=== PATIENT | female | born 1955 | race Caucasian/White ===

== ENCOUNTER 2016-08-24 13:37 | Emergency (ER) | payer BC, OTHER ==
[2016-08-24 14:00] VITALS: BMI 35.3
--- NOTE | 2016-08-24 14:08 | PDOC ---
History of Present Illness - General History Source: Patient Exam Limitations: No Limitations - History of Present Illness Initial Comments: CHIEF COMPLAINT: 61 y/o afebrile female with PMH HTN, HLD, NIDDM, GERD c/o nausea, vomiting and lightheaded since yesterday. HISTORY OF PRESENT ILLNESS: The patient states initially her symptoms started with a headache yesterday around lunch time and shortly afterwards the other symptoms began. She states she is lightheaded mostly if she stands up. She states she cannot hold down even water. She denies LOC, head trauma, f/c, neck pain, changes in vision/hearing, cough, hemoptysis, CP, SOB, back pain, hematuria, dysuria, diarrhea, constipation, melena, blood stools. PCP is Dr. Brett Hedrick/Dwaine Vital signs on arrival are within normal limits. REVIEW OF SYSTEMS: GENERAL/CONSTITUTIONAL: No fever/chills. No weakness. No weight change. + lightheaded. HEAD, EYES, EARS, NOSE AND THROAT: No change in vision. No ear pain or discharge. No sore throat. CARDIOVASCULAR: No chest pain or shortness of breath. RESPIRATORY: No cough, wheezing, or hemoptysis. GASTROINTESTINAL: +abdominal pain, nausea, vomiting. GENITOURINARY: No dysuria, frequency, or change in urination. MUSCULOSKELETAL: No joint or muscle swelling or pain. No neck or back pain. SKIN: No rash or easy bruising. NEUROLOGIC: No headache, vertigo, loss of consciousness, or loss of sensation. PHYSICAL EXAM: GENERAL: The patient is awake, alert, and fully oriented, in no acute distress. HEAD: Normal with no signs of trauma. NECK: No midline c-spine TTP or step offs. ENT: Pupils equal, round and reactive to light, extraocular movements intact, sclera anicteric, conjunctiva clear. Mucous membranes mildly dry. Lips dry and cracked. LUNGS: Clear to auscultation bilaterally. Normal excursion. No respiratory distress or use of accessory muscles. CV: RRR, S1/S2, no MRG. Cap refill < 2 sec. ABDOMEN: Soft, non-distended, TTP of epigastric region and RUQ with +Arana's sign. Passive guarding. No lower abdominal TTP. No rebound or rigidity. EXTREMITIES: Normal range of motion, no edema. NEUROLOGICAL: Normal speech, normal gait. CN II-XII grossly intact. PSYCH: Normal mood, normal affect. SKIN: Warm, dry, normal turgor, no rashes or lesions noted. <Paulina Cuba - Last Filed: 08/24/16 18:52> <Laly Pastrana - Last Filed: 08/25/16 08:40> - General Chief Complaint: Nausea/Vomiting Stated Complaint: NAUSEA, VOMITING Time Seen by Provider: 08/24/16 13:55 Past History <Paulina Cuba - Last Filed: 08/24/16 18:52> <Laly Pastrana - Last Filed: 08/25/16 08:40> - Past Medical History Allergies/Adverse Reactions: Allergies Allergy/AdvReac Type Severity Reaction Status Date / Time No Known Allergies Allergy Verified 08/24/16 13:41 Home Medications: Ambulatory Orders Atenolol [Tenormin -] 50 mg PO BID 08/24/16 Atorvastatin Ca [Lipitor] 20 mg PO HS 08/24/16 Famotidine [Pepcid] 20 mg PO BID #10 tablet 08/24/16 Omeprazole 40 mg PO DAILY 08/24/16 Ondansetron [Zofran Odt -] 4 mg SL TID #6 od.tablet 08/24/16 Sitagliptin Phos/Metformin HCl [Janumet 50-1,000 mg Tablet] 50 - 1,000 mg PO DAILY 08/24/16 *Physical Exam - Vital Signs Last Vital Signs Temp Pulse Resp BP Pulse Ox 98.6 F 82 16 134/72 96 08/24/16 18:12 08/24/16 18:12 08/24/16 18:12 08/24/16 18:12 08/24/16 18:12 <Laly Pastrana - Last Filed: 08/25/16 08:40> Heart Score/ECG Review - ECG Intrepretation Comment:: Twelve-lead EKG was performed and reviewed by Dr. Pastrana. There is normal sinus rhythm with a normal rate. The axis is normal. The intervals are normal. There are no ST or T wave abnormalities. Impression: Normal twelve-lead EKG <Paulina Cuba - Last Filed: 08/24/16 18:52> ED Treatment Course - LABORATORY CBC & Chemistry Diagram: 08/24/16 14:20 08/24/16 14:20 <Rosa ElenaPaulina - Last Filed: 08/24/16 18:52> - LABORATORY CBC & Chemistry Diagram: 08/24/16 14:20 08/24/16 14:20 - ADDITIONAL ORDERS Additional order review: 08/24/16 14:20 RBC 5.02 MCV 83.5 MCHC 34.2 RDW 13.1 MPV 9.5 Neutrophils % 76.5 Lymphocytes % 18.6 Monocytes % 4.2 Eosinophils % 0.2 Basophils % 0.5 - Medications Given in the ED: ED Medications Discontinued Medications Generic Name Dose Route Start Last Admin Trade Name Freq PRN Reason Stop Dose Admin Acetaminophen 1,000 mg 08/24/16 15:37 08/24/16 15:46 Ofirmev Injection - IVPB 08/24/16 15:38 1,000 mg ONCE ONE Administration Famotidine/Sodium Chloride 50 mls @ 100 mls/hr 08/24/16 14:09 08/24/16 14:33 Pepcid 20 Mg Premixed Ivpb - IVPB 08/24/16 14:38 100 mls/hr ONCE ONE Administration Sodium Chloride 1,000 mls @ 1,000 mls/hr 08/24/16 14:09 08/24/16 14:32 Normal Saline - IV 08/24/16 15:08 1,000 mls/hr ASDIR STA Administration Ondansetron HCl 4 mg 08/24/16 14:09 08/24/16 14:33 Zofran Injection IVPUSH 08/24/16 14:10 4 mg ONCE ONE Administration <Laly Pastrana - Last Filed: 08/25/16 08:40> Medical Decision Making - Medical Decision Making A/P: 61 y/o afebrile female with n/v, headache and lightheaded for the past 24 hours. Plan is as follows: 1. Labs 2. EKG 3. CXR 4. Gallbladder ultrasound 5. IV fluids 6. IV zofran 7. IV pepcid Gallbladder Ultrasound IMPRESSION: No gallstones identified. CXR IMPRESSION: No acute pathology. Potassium at 3.2. All other labs unremarkable. UA normal. Pt still with headache. Ordered IV tylenol The patient states she now feels much better with no nausea. She states her headache is now down to a 5/10, from a 10/10. She was able to pass a PO challenge, drinking ice water and juice without any subsequent nausea or abdominal pain. Will discharge to home with rx for zofran and pepcid. Suggested she slowly rehydrate and eat bland diet until symptoms improve. The patient was instructed to return to the ER with any worsening or concerning symptoms. The patient verbalizes understanding of all instructions, has no further questions and is awaiting discharge. <Paulina Cuba - Last Filed: 08/24/16 18:52> *DC/Admit/Observation/Transfer <Paulina Cuba - Last Filed: 08/24/16 18:52> - Attestations Physician Attestion: I reviewed the case with the mid-level practitioner and agree with the mid- level practitioner's assessment, diagnosis and disposition. <Laly Pastrana - Last Filed: 08/25/16 08:40> Diagnosis at time of Disposition: Lightheaded Nausea and vomiting Qualifiers: Vomiting type: unspecified Vomiting Intractability: non-intractable Qualified Code(s): R11.2 - Nausea with vomiting, unspecified Headache Qualifiers: Headache type: unspecified Headache chronicity pattern: acute headache Intractability: not intractable Qualified Code(s): R51 - Headache - Discharge Dispostion Disposition: HOME Condition at time of disposition: Improved - Prescriptions Prescriptions: Famotidine [Pepcid] 20 mg PO BID #10 tablet Ondansetron [Zofran Odt -] 4 mg SL TID #6 od.tablet - Referrals Referrals: Brett Hedrick MD [Primary Care Provider] - (Call Friday) - Patient Instructions Printed Discharge Instructions: DI for Nausea -- Adult, DI for Vomiting -- Adult, DI for Headache, [place] Diet Additional Instructions: Discharge Instructions: -Prescriptions have been sent to your pharmacy for vomiting and abdominal pain. Take only if needed -Please continue to drink plenty of fluids at home -You can take Tylenol or Motrin for headaches at home -Take your normal daily medications as prescribed -Call your doctor on Friday to schedule follow up appointment -Return to the ER with any worsening or concerning symptoms
[2016-08-24] MEDS ORDERED: SODIUM CHLORIDE 1,000 ML IV STA (14:09)
[2016-08-24] MEDS ORDERED: ONDANSETRON 4 MG/2 ML VIAL IVPUSH ONE (14:09)
[2016-08-24] MEDS ORDERED: FAMOTIDINE 20 MG/50 ML IVPB 50 ML IVPB ONE ×2 (14:09→14:27)
[2016-08-24] MEDS ORDERED: ONDANSETRON 4 MG/2 ML VIAL ONE (14:27)
[2016-08-24 14:32] LABS: BASOPHIL 0.5 % (0-2.0); EOSINOPHIL 0.2 % (0-4.5); MCH 28.5 pg (25.7-33.7); MCHC 34.2 g/dl (32.0-36.0); MEAN CELL VOLUME 83.5 fl (80-96); MEAN PLT VOLUME 9.5 fl (7.5-11.1); NEUTROPHILS 76.5 % (42.8-82.8); PLATELET COUNT 226 K/MM3 (134-434); RDW 13.1 % (11.6-15.6); WHITE BLOOD COUNT 12.2 K/mm3 (4.0-10.0)
[2016-08-24 14:36] LABS: URINE APPEARANCE CLEAR; URINE BILIRUBIN NEGATIVE (NEGATIVE); URINE BLOOD NEGATIVE (NEGATIVE); URINE COLOR LTYELLOW; URINE GLUCOSE (UA) NEGATIVE (NEGATIVE); URINE KETONE NEGATIVE (NEGATIVE); URINE LEUK ESTERASE NEGATIVE (NEGATIVE); URINE NITRITE NEGATIVE (NEGATIVE); URINE PROTEIN NEGATIVE (NEGATIVE); URINE UROBILINOGEN NEGATIVE mg/dL (0.2-1.0)
[2016-08-24 14:52] LABS: ALBUMIN 4.2 g/dl (3.4-5.0); ANION GAP 9 (8-16); BILIRUBIN,TOTAL 0.9 mg/dL (0.2-1.0); CALCIUM 10.3 mg/dL (8.5-10.1); CO2 31 mmol/L (21-32); CREATININE 0.8 mg/dL (0.55-1.02); GLUCOSE,RANDOM 161 mg/dL (74-106); SGOT/AST 30 U/L (15-37); SGPT/ALT 44 U/L (12-78)
[2016-08-24 14:55] LABS: ALK PHOS 43 U/L (45-117); TROPONIN I < 0.02 ng/ml (0.00-0.05)
[2016-08-24] MEDS ORDERED: ACETAMINOPHEN 1000 MG/100 ML VIAL (NON FORMULARY) IVPB ONE (15:37)
[2016-08-24] MEDS ORDERED: ACETAMINOPHEN INJECTION 100 ML IVPB ONE (15:39)
[2016-08-24 18:14] VITALS: BP 134/72; PULSE 82; TEMP 98.6
--- NOTE | 2016-08-25 13:47 | EKG ---
Test Reason : Blood Pressure : / mmHG Vent. Rate : 067 BPM Atrial Rate : 067 BPM P-R Int : 148 ms QRS Dur : 098 ms QT Int : 446 ms P-R-T Axes : 024 004 004 degrees QTc Int : 471 ms NORMAL SINUS RHYTHM NORMAL ECG WHEN COMPARED WITH ECG OF 28-MAY-2004 04:30, T WAVE INVERSION NOW EVIDENT IN ANTERIOR LEADS Confirmed by JESSI AVITIA, CLARE ([id number]) on 08/25/2016 1:47:28 PM Referred By: Confirmed By:CLARE BOWEN MD
== END 2016-08-24 18:14 | disposition home or self-care (01) ==
LOC: JER 13:37
PROC: 3E033GC Introduction of Other Therapeutic Substance into Peripheral Vein, Percutaneous Approach (ICD-10-PCS; principal; 2016-08-24)
PROC: 3E033NZ Introduction of Analgesics, Hypnotics, Sedatives into Peripheral Vein, Percutaneous Approach (ICD-10-PCS; 2016-08-24)
PROC: 3E033GC Introduction of Other Therapeutic Substance into Peripheral Vein, Percutaneous Approach (ICD-10-PCS; 2016-08-24)
DX: R51 Headache (principal); R42 Dizziness and giddiness; R11.2 Nausea with vomiting, unspecified; I10 Essential (primary) hypertension; E11.9 Type 2 diabetes mellitus without complications; Z79.84 Long term (current) use of oral hypoglycemic drugs; E78.00 Pure hypercholesterolemia, unspecified; K21.9 Gastro-esophageal reflux disease without esophagitis
CPT/HCPCS: 36415; 71010-TC; 76705-TC; 80053; 81003; 82550; 83690; 84484; 85025; 87086; 93005; 93010; 99284-25

== ENCOUNTER 2017-02-23 10:43 | Emergency (ER) | payer BC, OTHER ==
[2017-02-23 10:53] VITALS: TEMP 98.2; BMI 35.2
--- NOTE | 2017-02-23 11:14 | PDOC ---
History of Present Illness - General History Source: Patient, Family, Old Records Exam Limitations: No Limitations - History of Present Illness Initial Comments: 02/23/17 11:23 The patient is a 61 year old female presenting with her family, with a significant past medical history of diabetes, GERD, HTN and HLD, who presents to the emergency department with elevated blood sugar levels (over 300), URI symptoms and headaches. She reports that she has noticed that she as been urinating much more frequently. She states that she usually gets headaches when her sugar level is high. She describes her headache as ranging from mild to moderate, without radiation. She states that the headache is accompanied with blurry vision. She reports that she was recently prescribed antibiotics (cipro) for her URI symptoms which has helped. She denies receiving the flu shot this year and notes that she has not been tested for the flu. The patient denies chest pain, shortness of breath, and dizziness. Denies fever , chills, diarrhea and constipation. Denies dysuria, urgency and hematuria. Allergies: None Past surgical history: None reported Social history: No alcohol, tobacco or drug use reported <Endy Chisholm - Last Filed: 02/23/17 11:23> <Meme Garcia - Last Filed: 02/23/17 13:23> - General Chief Complaint: Blood Sugar Problem Stated Complaint: HEADACHES Time Seen by Provider: 02/23/17 10:56 Past History <Endy Chisholm - Last Filed: 02/23/17 11:23> - Past Medical History COPD: No Diabetes: Yes GI Disorders: Yes (ACID REFLUX.) HTN: Yes Hypercholesterolemia: Yes - Suicide/Smoking/Psychosocial Hx Smoking History: Never smoked Hx Alcohol Use: No Drug/Substance Use Hx: No Substance Use Type: None <Meme Garcia - Last Filed: 02/23/17 13:23> - Past Medical History Allergies/Adverse Reactions: Allergies Allergy/AdvReac Type Severity Reaction Status Date / Time No Known Allergies Allergy Verified 02/23/17 10:53 Home Medications: Ambulatory Orders Atorvastatin Ca [Lipitor] 20 mg PO HS 08/24/16 Albuterol Sulfate Inhaler - [Ventolin Hfa Inhaler -] 1 - 2 inh PO QID 02/23/17 Aspirin [ASA -] 81 mg PO DAILY 02/23/17 Atenolol/Chlorthalidone [Atenolol-Chlorthalidone 100-25] 1 each PO DAILY Azithromycin [Zithromax -] 250 mg PO DAILY 02/23/17 Cephalexin [Keflex] 500 mg PO BID #14 capsule 02/23/17 Metformin HCl [Glucophage -] 500 mg PO BID 02/23/17 Review of Systems - Review of Systems Able to Perform ROS?: Yes Comments:: 02/23/17 11:23 GENERAL/CONSTITUTIONAL: No fever or chills. No weakness. HEAD, EYES, EARS, NOSE AND THROAT: (+) Blurry vision. No ear pain or discharge. No sore throat.- CARDIOVASCULAR: No chest pain or shortness of breath RESPIRATORY: No cough, wheezing, or hemoptysis. GASTROINTESTINAL: No nausea, vomiting, diarrhea or constipation. GENITOURINARY: (+) Frequency. No dysuria, change in urination. MUSCULOSKELETAL: No joint or muscle swelling or pain. No neck or back pain. SKIN: No rash NEUROLOGIC: (+) Headache. No vertigo, loss of consciousness, or change in strength/sensation. ENDOCRINE: No increased thirst. No abnormal weight change HEMATOLOGIC/LYMPHATIC: No anemia, easy bleeding, or history of blood clots. ALLERGIC/IMMUNOLOGIC: No hives or skin allergy. <Endy Chisholm - Last Filed: 02/23/17 11:23> *Physical Exam - Vital Signs Last Vital Signs Temp Pulse Resp BP Pulse Ox 98.2 F 80 20 160/92 98 02/23/17 10:50 02/23/17 10:50 02/23/17 10:50 02/23/17 10:50 02/23/17 10:50 - Physical Exam Comments: 02/23/17 11:23 GENERAL: Awake, alert, and fully oriented, in no acute distress HEAD: No signs of trauma, normocephalic, atraumatic EYES: PERRLA, EOMI, sclera anicteric, conjunctiva clear ENT: Auricles normal inspection, hearing grossly normal, nares patent, oropharynx clear without exudates. Moist mucosa NECK: Normal ROM, supple, no lymphadenopathy, JVD, or masses LUNGS: No distress, speaks full sentences, clear to auscultation bilaterally HEART: (+) Tachycardia. normal S1 and S2, no murmurs, rubs or gallops, peripheral pulses normal and equal bilaterally. ABDOMEN: (+) Epigastric discomfort. Soft, normoactive bowel sounds. No guarding , no rebound. No masses EXTREMITIES : Normal inspection, Normal range of motion, no edema. No clubbing or cyanosis. NEUROLOGICAL: Cranial nerves II through XII grossly intact. Normal speech, no focal sensorimotor deficits Finger to nose normal. All sensations intact. SKIN: Warm, Dry, normal turgor, no rashes or lesions noted. <Endy Chisholm - Last Filed: 02/23/17 11:23> - Vital Signs Last Vital Signs Temp Pulse Resp BP Pulse Ox 98.2 F 80 20 160/92 98 02/23/17 10:50 02/23/17 10:50 02/23/17 10:50 02/23/17 10:50 02/23/17 10:50 <Meme Garcia - Last Filed: 02/23/17 13:23> Heart Score/ECG Review - ECG Intrepretation Comment:: 02/23/17 12:50 sinus at 70, nl axis, nl interval, t wave inversions III which are nonspecific <Meme Garcia - Last Filed: 02/23/17 13:23> ED Treatment Course - LABORATORY CBC & Chemistry Diagram: 02/23/17 11:30 02/23/17 11:30 <Meme Garcia - Last Filed: 02/23/17 13:23> Medical Decision Making - Medical Decision Making 02/23/17 11:16 a/p: 61yo female with gimenez and elevated bg -no meningeal signs -no signs/symptoms consistent with temporal arteritis -no ttp over temporal region -neuro intact -will obtain head ct, labs, ekg, cxr -cough causes cp, no cp without cough -feeling better with zithromax -will hydrate with ivf hydration and reglan/benadryl for headache -hx of headaches that are similar when glucose is high -ua given urinary freq -will monitor and reassess 02/23/17 12:45 pt with urinary freq and leuks on ua - will start abx ivf hydration running pt drinking water as well 02/23/17 12:56 re-eval: pt feeling better. gimenez resolved currently receiving abx for uti discussed plans with the patient and need for abx answered all questions receiving ivf hydration 02/23/17 13:19 gimenez resolved. tolerated po will d/c to home discussed all reasons to return to the ED and need for follow up with PMD. family at the bedside and agrees with the plan <Meme Garcia - Last Filed: 02/23/17 13:23> *DC/Admit/Observation/Transfer - Attestations Scribe Attestion: 02/23/17 11:24 Documentation prepared by Endy Chisholm, acting as medical record specialist for Meme Garcia DO <Endy Chisholm - Last Filed: 02/23/17 11:23> - Discharge Dispostion Admit: No - Attestations Physician Attestion: 02/23/17 13:23 I, Dr. Meme Garcia, DO, attest that this document has been prepared under my direction and personally reviewed by me in its entirety. I further attest, that it accurately reflects all work, treatment, procedures and medical decision -making performed by me. <Meme Garcia - Last Filed: 02/23/17 13:23> Diagnosis at time of Disposition: Headache, UTI (urinary tract infection), Hyperglycemia - Discharge Dispostion Disposition: HOME Condition at time of disposition: Stable - Prescriptions Prescriptions: Cephalexin [Keflex] 500 mg PO BID #14 capsule - Referrals Referrals: Vahe Hedrick MD [Primary Care Provider] - - Patient Instructions Printed Discharge Instructions: DI for Hyperglycemia -- Adult, DI for Urinary Tract Infection (UTI), DI for Headache Additional Instructions: Please take all meds as prescribed. Please make an appointment to see the neurologist if your headache returns. Please make an appointment to see your PMD next week. Please return to the ED with any further complaints. - Post Discharge Activity
[2017-02-23] MEDS ORDERED: FAMOTIDINE 20 MG/50 ML IVPB 50 ML IVPB ONE (11:15)
[2017-02-23] MEDS ORDERED: SODIUM CHLORIDE 0.9% 1000 ML INFUS.BAG IV ONE (11:15)
[2017-02-23] MEDS ORDERED: METOCLOPRAMIDE HCL INJECTION 10 MG/2 ML VIAL IVPUSH ONE (11:15)
[2017-02-23] MEDS ORDERED: ACETAMINOPHEN 1000 MG/100 ML VIAL (NON FORMULARY) IVPB ONE (11:15)
[2017-02-23] MEDS ORDERED: FAMOTIDINE IV 20 MG/12 ML VIAL IVPUSH ONE (11:30)
[2017-02-23] MEDS ORDERED: ACETAMINOPHEN INJECTION 100 ML IVPB ONE (11:37)
[2017-02-23] MEDS ORDERED: METOCLOPRAMIDE HCL INJECTION 10 MG/2 ML VIAL ONE (11:37)
[2017-02-23] MEDS ORDERED: FAMOTIDINE 20 MG/50 ML IVPB 20 MG/50 ML MG IVPB ONE (11:38)
[2017-02-23 11:41] LABS: HEMOGLOBIN 14.1 GM/dL (10.7-15.3); LYMPH % 26.3 % (8-40); MCH 28.1 pg (25.7-33.7); MCHC 33.6 g/dl (32.0-36.0); MEAN CELL VOLUME 83.6 fl (80-96); MEAN PLT VOLUME 8.9 fl (7.5-11.1); MONO % 8.6 % (3.8-10.2); NEUT % 63.1 % (42.8-82.8); PLATELET COUNT 327 K/MM3 (134-434); RBC 5.02 M/mm3 (3.60-5.2); RDW 12.9 % (11.6-15.6); URINE APPEARANCE SLCLOUDY; URINE BILIRUBIN NEGATIVE (NEGATIVE); URINE BLOOD NEGATIVE (NEGATIVE); URINE COLOR LTYELLOW; URINE GLUCOSE (UA) NEGATIVE (NEGATIVE); URINE KETONE NEGATIVE (NEGATIVE); URINE NITRITE NEGATIVE (NEGATIVE); URINE PROTEIN NEGATIVE (NEGATIVE); URINE UROBILINOGEN NEGATIVE mg/dL (0.2-1.0)
[2017-02-23 11:45] LABS: URINE LEUK ESTERASE 2+ (NEGATIVE)
[2017-02-23 11:48] LABS: EPI CELLS FEW /HPF (FEW); URINE BACTERIA RARE /hpf (NONE SEEN); URINE MUCUS RARE
[2017-02-23 11:55] LABS: ALBUMIN 3.8 g/dl (3.4-5.0); ANION GAP 10 (8-16); BILIRUBIN,TOTAL 0.8 mg/dL (0.2-1.0); BLOOD UREA NITROGEN 26 mg/dL (7-18); CALCIUM 9.2 mg/dL (8.5-10.1); CHLORIDE 96 mmol/L (98-107); CO2 28 mmol/L (21-32); CREATININE 0.8 mg/dL (0.55-1.02); GLUCOSE,RANDOM 247 mg/dL (74-106); LIPASE 187 U/L (73-393); MAGNESIUM 2.1 mg/dL (1.8-2.4); POTASSIUM 3.2 mmol/L (3.5-5.1); SGOT/AST 27 U/L (15-37); SGPT/ALT 50 U/L (12-78); SODIUM 134 mmol/L (136-145)
[2017-02-23 11:56] LABS: ALK PHOS 59 U/L (45-117); TOT PROT 7.9 g/dl (6.4-8.2)
[2017-02-23] MEDS ORDERED: cefTRIAXone 1 GM/50 ML BAG (PRE-DOCKED) IVPB ONE (12:44)
[2017-02-23] MEDS ORDERED: CEFTRIAXONE 1 GM/50 ML BAG ONE (12:49)
[2017-02-23 13:32] VITALS: BP 131/72; PULSE 68
--- NOTE | 2017-02-24 11:26 | EKG ---
Test Reason : Blood Pressure : / mmHG Vent. Rate : 070 BPM Atrial Rate : 070 BPM P-R Int : 142 ms QRS Dur : 094 ms QT Int : 416 ms P-R-T Axes : 032 -03 -05 degrees QTc Int : 449 ms NORMAL SINUS RHYTHM NONSPECIFIC T WAVE ABNORMALITY WHEN COMPARED WITH ECG OF 24-AUG-2016 14:44, NO SIGNIFICANT CHANGE WAS FOUND Confirmed by MANDO TINSLEY MD ([id number]) on 02/24/2017 11:25:58 AM Referred By: Confirmed By:MANDO TINSLEY MD
== END 2017-02-23 13:32 | disposition home or self-care (01) ==
LOC: JER 10:43
PROC: 3E03329 Introduction of Other Anti-infective into Peripheral Vein, Percutaneous Approach (ICD-10-PCS; principal; 2017-02-23)
PROC: 3E033NZ Introduction of Analgesics, Hypnotics, Sedatives into Peripheral Vein, Percutaneous Approach (ICD-10-PCS; 2017-02-23)
PROC: 3E033GC Introduction of Other Therapeutic Substance into Peripheral Vein, Percutaneous Approach (ICD-10-PCS; 2017-02-23)
PROC: 3E033GC Introduction of Other Therapeutic Substance into Peripheral Vein, Percutaneous Approach (ICD-10-PCS; 2017-02-23)
PROC: 3E033GC Introduction of Other Therapeutic Substance into Peripheral Vein, Percutaneous Approach (ICD-10-PCS; 2017-02-23)
DX: E11.65 Type 2 diabetes mellitus with hyperglycemia (principal); Z79.84 Long term (current) use of oral hypoglycemic drugs; N39.0 Urinary tract infection, site not specified; R51 Headache
CPT/HCPCS: 36415; 70450-TC; 71046-TC; 80053; 81003; 81015; 82962; 83605; 83690; 83735; 85025; 93005; 93010; 99283-25